=== PATIENT | male | born 1960 | race African-American/Black ===

== ENCOUNTER 2017-07-04 17:20 | Emergency (ER) | payer MEDICARE, MEDICAID ==
[~2017-07-04] VITALS: Ht 167.6 cm; Wt 80.3 kg
[2017-07-04 17:27] VITALS: BP 142/70
[2017-07-04] MEDS ORDERED: ACETAMINOPHEN ES 500 MG TABLET PO ONE (18:00)
[2017-07-04] MEDS ORDERED: ACETAMINOPHEN ES 500 MG TABLET ONE (18:08)
--- NOTE | 2017-07-04 18:13 | NUR ---
PT MEDICATED ORDERED. JOHN WRAP APPLIED.PT D/C HOME IN STABLE CONDITION.
== END 2017-07-04 18:38 | disposition home or self-care (01) ==
LOC: ER 17:32
DX: M25.562 Pain in left knee (principal); Z88.0 Allergy status to penicillin; Z88.6 Allergy status to analgesic agent; F17.200 Nicotine dependence, unspecified, uncomplicated; Z59.0 Homelessness
CPT/HCPCS: A4606; Z7610